=== PATIENT | male | born 1940 | race Caucasian/White ===

== ENCOUNTER 2020-12-21 20:32 | Inpatient (IN) | payer MEDICARE, BC, SELFPAY ==
[2020-12-21 20:36] VITALS: BP 184/83; PULSE 87; RESP 18; TEMP 37.3; O2SAT 95; BMI 29.9
--- NOTE | 2020-12-21 20:49 | CTR_ITS ---
PROCEDURE INFORMATION: Exam: CT Abdomen And Pelvis With Contrast Exam date and time: 12/21/2020 9:49 PM Age: 80 years old Clinical indication: Nausea and vomiting; Abdominal pain; Generalized; Patient HX: Diffuse abd pain with n/v. ; Additional info: Abdominal pain, nausea, vomiting, constipation TECHNIQUE: Imaging protocol: Computed tomography of the abdomen and pelvis with contrast. Radiation optimization: All CT scans at this facility use at least one of these dose optimization techniques: automated exposure control; mA and/or kV adjustment per patient size (includes targeted exams where dose is matched to clinical indication); or iterative reconstruction. Contrast material: OMNI 300; Contrast volume: 95 ml; Contrast route: INTRAVENOUS (IV); COMPARISON: No relevant prior studies available. RADIATION DOSE METRICS: Total DLP (mGy-cm): 1216.83 FINDINGS: Liver: There is mild hypoattenuation of the hepatic parenchyma compatible mild fatty infiltration. Gallbladder and bile ducts: A tiny hyperdensities seen in the dependent portion of the gallbladder compatible with tiny gallstones gallbladder sludge. Pancreas: Normal. No ductal dilation. Spleen: Punctate calcifications are seen within the spleen compatible with calcified granulomas. Adrenal glands: Normal. No mass. Kidneys and ureters: Normal. No hydronephrosis. Stomach and bowel: Moderate stool is present within the ascending and transverse colon. There are some dilated loops of small bowel seen within the left flank anteriorly possibly representing ileus although a partial small bowel obstruction be entirely excluded. Diverticula are seen on the sigmoid colon. There are no inflammatory changes present to suggest diverticulitis. Appendix: The appendix is abnormally dilated to 12.9 mm, containing fluid and prominent appendicular and surrounded by strandy and hazy opacities within the appendiceal mesentery, findings compatible with acute appendicitis. Intraperitoneal space: See Soft tissues finding. Vasculature: Unremarkable. No abdominal aortic aneurysm. Lymph nodes: Unremarkable. No enlarged lymph nodes. Urinary bladder: Unremarkable as visualized. Reproductive: Unremarkable as visualized. Bones/joints: Unremarkable. No acute fracture. Soft tissues: There is a right inguinal hernia that contains predominantly fat. There is a discoid the fluid attenuation mass seen along the lateral border of the hernia sac that exhibits some peripheral enhancement measuring 4.2 x 1.4 x 3.6 cm. A small peritoneal abscess cannot be entirely excluded. CT/CT abdomen pelvis w con* [id number] IMPRESSION: 1. Abnormally dilated fluid-filled appendix measuring 12.9 mm containing a prominent appendiculith and surrounded by inflammatory changes compatible with acute appendicitis. 2. Dilated small bowel loops seen in the left flank anteriorly may represent ileus although partial small bowel obstruction cannot be entirely excluded. 3. Diverticulosis of the sigmoid colon 4. Tiny hyperdensity in the dependent portion of gallbladder likely represents a tiny gallstone or sludge. 5. Mild fatty infiltration of the liver Radiation Dose CTDIVOL = (mGy): DLP = 1216.83 (mGy-cm)
[2020-12-21 21:09] LABS: Basophils % 0.2 %; Eosinophils # 0.1 10^3/uL (0.0-0.8); Eosinophils % 0.8 %; Hematocrit 40.8 % (42.0-52.0); Hemoglobin 13.6 g/dL (11.7-16.6); Lymphocytes # 2.3 10^3/uL (0.8-4.8); Lymphocytes % 14.8 %; Mean Corpuscular HGB Conc 33.3 g/dL (30.0-36.0); Mean Corpuscular Hemoglobin 29.6 pg (28.0-34.0); Mean Corpuscular Volume 88.7 fL (80-94); Mean Platelet Volume 9.9 fL (7.4-10.4); Monocytes # 1.4 10^3/uL (0.2-0.9); Monocytes % 8.8 %; Neutrophils # 11.84 10^3/uL (1.8-7.7); Nucleated Red Blood Cells % 0 %; Platelet Count 251 10^3/cmm (130-400); Red Cell Distribution Width 12.2 % (12.1-15.1); White Blood Count 15.8 10^3/uL (4.0-10.0)
[2020-12-21 21:36] LABS: Procalcitonin 0.07 ng/mL (0-0.5)
[2020-12-21 21:47] LABS: Alanine Aminotransferase 26 U/L (0-41); Alkaline Phosphatase 63 IU/L (40-130); Anion Gap 15.7 (5-19); Aspartate Amino Transferase 17 U/L (0-40); Blood Urea Nitrogen 13 mg/dL (8-23); C Reactive Protein 12.6 mg/L (0.0-4.9); Calcium 9.1 mg/dL (8.5-10.5); Carbon Dioxide 26 mmol/L (22-29); Chloride 100 mmol/L (98-107); Globulin 3.2 g/dL (1.3-4.6); Glucose 163 mg/dL (65-115); Lipase 26 U/L (13-60); Osmolality Calculated 290 mOsm/kg (285-295); Potassium 3.7 mmol/L (3.5-5.1); Sodium 138 mmol/L (136-145); Total Bilirubin 0.9 mg/dL (0.15-1.2); Total Protein 7.2 g/dL (6.6-8.7)
[2020-12-21 21:50] LABS: Add Urine Microscopic? NO
[2020-12-21] MEDS: iohexol 300 mg/mL 100 mL Btl IV (21:56)
[2020-12-21 22:08] LABS: Bilirubin Urine Neg (Negative); Blood Urine Neg (Negative); Glucose Urine UA Norm (Normal); Ketones Urine 2+ (Negative); Leukocyte Esterase Urine Negative (Negative); Nitrate Urine Negative (Negative); Protein Urine Neg (Negative); Specific Gravity, Urine 1.015 (1.005-1.030); Sulfosalicylic Acid Urine Negative (Negative); Urine Appearance Clear (CLEAR); Urine Color Yellow (Yellow); Urobilinogen Urine Norm (Negative); pH Urine 9 (5-7)
--- NOTE | 2020-12-21 23:13 | ED_ITS ---
HPI - Nausea/Vomiting/Diarrhea General: Chief complaint: Nausea/Vomiting/Diarrhea Stated complaint: stomach pain Time Seen by Provider: 12/21/20 20:40 Source: patient Mode of arrival: ambulatory Limitations: no limitations History of Present Illness: HPI Narrative: 80-year-old male who said he was awoken this morning at 2 AM with abdominal pain. He is really unable to localize the pain but he said it has gotten much worse during the day. He feels that he is constipated and thought that may be part of why he was in pain. He has taken several things to help relieve his constipation but there has been no improvement. He also has anorexia and has not had an appetite all day. He denies any fever. He has 1 episode of vomiting today. MD elicited complaint: nausea, vomiting and abdominal pain Onset (ago): hour(s) (18) Description of vomiting: food contents Associated nausea: Yes Associated abdominal pain: Yes Location of pain: Diffuse Radiation: LLQ and RLQ Pain consistency: constant Severity: severe Quality: stabbing Exacerbating factors: none Relieving factors: none Associated symtoms: Reports anorexia and nausea; Denies altered mental status, anxiety, bloating, change in vision, chest pain, cough, diaphoresis, decreased urine output, dizziness, dysuria, epistaxis, fatigue, fecal incontinence, fevers/chills, headache(s), malaise, myalgias, numbness, palpitations, rash, short of breath, syncope, tenesmus, tinnitus or weakness Review of Systems General: Reports: 10 or more systems reviewed and unremarkable except in HPI and below Const: Denies: fatigue, malaise or diaphoresis Eyes: Denies: change in vision ENMT: Denies: tinnitus or epistaxis Card: Denies: chest pain, palpitations or syncope Resp: Denies: dyspnea, productive cough or non-productive cough GI: Reports: nausea; Denies: bloating or fecal incontinence : Denies: dysuria Musc: Denies: neck pain, back pain or extremity swelling Skin/Breast: Denies: rash, pruritus or erythema Neuro: Denies: headache(s) or dizziness Psych: Denies: anxiety Endo: Denies: polyuria, polydipsia or tired all the time [facility] PFSH: Medical History (Updated 12/21/20 @ 23:26 by Gaurav Gray MD, [facility]) Coronary artery disease Diverticulosis Gastritis Giant cell arteritis History of MRSA infection Purulent wound of left upper thigh status post incision and drainage 2011 HTN (hypertension), benign Hyperlipidemia Hyperlipidemia Type 2 diabetes mellitus without complications Surgical History H/O foot surgery left heel History of colonoscopy History of coronary artery bypass graft History of esophagogastroduodenoscopy (EGD) History of hernia repair Status post surgical removal of neoplasm of skin Family History Other Diabetes Social History Smoking and tobacco status: former smoker Alcohol intake: never History of recent travel: No Physical Exam 2 Const: COMMON NORMALS: no acute distress, average body habitus, patient oriented x3, no limitations, healthy appearing, alert and well nourished EXAM LIMITATIONS: no altered mental status Neck/C-Spine: COMMON NORMALS: no meningeal signs and no JVD Resp: COMMON NORMALS: normal respiratory effort, No retractions, No use of accessory muscles, clear to auscultation bilaterally and percussion normal AUSCULTATION: clear to auscultation bilaterally PERCUSSION: percussion normal Cardio: COMMON NORMALS: no JVD, regular rate, regular rhythm, S1 normal heart sound present, S2 normal heart sound present, No gallops present (Cardio), No clicks present (Cardio), No murmurs present (Cardio), No rub (Cardio) and Peripheral pulses 2+ throughout RATE: regular rate RHYTHM: regular rhythm HEART SOUNDS: S1 normal heart sound present and S2 normal heart sound present PERIPHERAL PULSES: Peripheral pulses 2+ throughout GI: COMMON NORMALS: Normal to inspection, nondistended, normoactive bowel sounds present, Soft to palpation, No hepatosplenomegaly present, no masses and no bruits PALPATION: Yes Soft to palpation, Yes Tenderness to palpation present (GI) Details: RLQ, No Guarding due to palpation present (GI), No Rigid due to palpation and Yes No hepatosplenomegaly present Extremity: COMMON NORMALS: normal to inspection, full ROM, capillary refill normal, no calf tenderness and no pedal edema Neuro: COMMON NORMALS: patient oriented x3 SENSORIUM/ORIENTATION: Yes alert MENINGEAL SIGNS: Yes no meningeal signs Skin: COMMON NORMALS: no rashes or lesions noted, no wounds, turgor normal, no jaundice, no petechiae and no mottling GENERAL SKIN EXAM: no rashes or lesions noted and turgor normal Course Reevaluation(s): Reevaluation #1: Discussed his lab and imaging findings with the patient and his [id number], also discussed my conversation with Dr. Chavez. Advised that he will be taken to the OR in the morning. He voiced understanding and is in agreement with the plan. He said that when he took penicillin several years ago he had what he described as a skin peeling off. 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 We will therefore not give him Zosyn and will do clindamycin and Levaquin. Time: 22:45 Consultations: Consultation #1: Discussed the patient with Dr. Chavez, surgeon and he kindly accepted patient to his service. He will take the patient to the OR in the morning at 8 AM for a laparoscopic appendectomy. He would like the hospitalist to consult on this patient since he is diabetic and hypertensive. Time: 22:35 Consultation #2: Discussed the patient with Dr. Jefferson, hospitalist and he will consult on this patient. Time: 23:03 Vital Signs: Vital signs: Vital Signs Temperature 99.1 F 12/21/20 20:36 Pulse Rate 87 12/21/20 20:36 Respiratory Rate 18 12/21/20 20:36 Blood Pressure 184/83 12/21/20 20:36 Pulse Oximetry 95 12/21/20 20:36 MDM - Nausea/Vomiting/Diarrhea MDM Narrative: Medical decision making narrative: 80-year-old male with a history of hypertension and diabetes who presents with abdominal pain. Evaluation in the emergency department shows he has acute appendicitis. He has mild leukocytosis. He is admitted to the surgical service for appendectomy in the morning. He will be n.p.o. from now on and is given intravenous pain medication and antibiotics in the emergency department. Medical Records: Attestation: I reviewed the patient's medical records. Lab Data: Attestation: I reviewed the patient's lab results. Labs: Lab Results 02/19/21 02/19/21 02/19/21 Range/Units 21:02 21:02 21:40 WBC 15.8 H (4.0-10.0) 10^3/ uL RBC 4.60 (4.1-5.3) 10^6/u L Hgb 13.6 (11.7-16.6) g/dL Hct 40.8 L (42.0-52.0) % MCV 88.7 (80-94) fL MCH 29.6 (28.0-34.0) pg MCHC 33.3 (30.0-36.0) g/dL RDW 12.2 (12.1-15.1) % Plt Count 251 (130-400) 10^3/c mm MPV 9.9 (7.4-10.4) fL Neut % (Auto) 75.0 % Lymph % (Auto) 14.8 % [place] % (Auto) 8.8 % Eos % (Auto) 0.8 % Baso % (Auto) 0.2 % Neut # (Auto) 11.84 H (1.8-7.7) 10^3/u L Lymph # (Auto) 2.3 (0.8-4.8) 10^3/u L [place] # (Auto) 1.4 H (0.2-0.9) 10^3/u L Eos # (Auto) 0.1 (0.0-0.8) 10^3/u L Baso # (Auto) 0.0 (0.0-0.1) 10^3/u L Nucleated RBC % (a uto) 0 % Nucleated RBCs # 0.0 /100WBC Sodium 138 (136-145) mmol/L Potassium 3.7 (3.5-5.1) mmol/L Chloride 100 (98-107) mmol/L Carbon Dioxide 26 (22-29) mmol/L Anion Gap 15.7 (5-19) BUN 13 (8-23) mg/dL Creatinine 0.9 (0.7-1.2) mg/dL GFR Calculation Not Reportable Glucose 163 H (65-115) mg/dL Calculated Osmolal ity 290 (285-295) mOsm/k g Calcium 9.1 (8.5-10.5) mg/dL Total Bilirubin 0.9 (0.15-1.2) mg/dL AST 17 (0-40) U/L ALT 26 (0-41) U/L Alkaline Phosphata se 63 (40-130) IU/L C-Reactive Protein 12.6 H (0.0-4.9) mg/L Total Protein 7.2 (6.6-8.7) g/dL Albumin 4.0 (3.5-5.2) g/dL Globulin 3.2 (1.3-4.6) g/dL Lipase 26 (13-60) U/L Procalcitonin 0.07 (0-0.5) ng/mL Urine Color Yellow (Yellow) Urine Appearance Clear (CLEAR) Urine pH 9 H (5-7) Ur Specific Gravit y 1.015 (1.005-1.030) Urine Protein Neg (Negative) Urine Glucose (UA) Norm (Normal) Urine Ketones 2+ H (Negative) Urine Blood Neg (Negative) Urine Nitrate Negative (Negative) Urine Bilirubin Neg (Negative) Prot Sulfosalicyli c Acd Negative (Negative) Urine Urobilinogen Norm (Negative) mg/dL Ur Leukocyte Elena ase Negative (Negative) Imaging Data^: CT Abd/Pel: Attestation: I personally reviewed and interpreted this imaging study as follows: Radiologist's impression: [place] [address] CT Scan Report Signed with Stephany Patient: Troy Carpio #: [id number] : 8Acct#:[id number] Age/Sex: 80 / MADM Date: 12/21/20 [facility] Attending Dr: Ordering Provider/Ordering MD: Gaurav Gray MD, [facility] Date of Service: 12/21/20 Procedure(s): CT abdomen pelvis w con* [id number] Accession Number(s): [id number] Report Number: [id number]/CT abdomen pelvis w con* [id number] CRITICAL RESULT: THIS REPORT CONTAINS FINDINGS THAT MAY BE CRITICAL TO PATIENT CARE. The findings were verbally communicated via telephone conference with GAURAV Woflf at 10:53 PM ASSISTANT TECHNICIAN on 12/21/2020. The findings were acknowledged and understood. Radiation Dose CTDIVOL = (mGy): DLP = 1216.83 (mGy-cm) Addendum Dictated By: Castro Morelos MD Addendum Signed By: Castro Morelos MDSigned Date/Time:12/21/20 5430 Addendum Cosigned By: PROCEDURE INFORMATION: Exam: CT Abdomen And Pelvis With Contrast Exam date and time: 12/21/2020 9:49 PM Age: 80 years old Clinical indication: Nausea and vomiting; Abdominal pain; Generalized; Patient HX: Diffuse abd pain with n/v. ; Additional info: Abdominal pain, nausea, vomiting, constipation TECHNIQUE: Imaging protocol: Computed tomography of the abdomen and pelvis with contrast. Radiation optimization: All CT scans at this facility use at least one of these dose optimization techniques: automated exposure control; mA and/or kV adjustment per patient size (includes targeted exams where dose is matched to clinical indication); or iterative reconstruction. Contrast material: OMNI 300; Contrast volume: 95 ml; Contrast route: INTRAVENOUS (IV); COMPARISON: No relevant prior studies available. RADIATION DOSE METRICS: Total DLP (mGy-cm): 1216.83 FINDINGS: Liver: There is mild hypoattenuation of the hepatic parenchyma compatible mild fatty infiltration. Gallbladder and bile ducts: A tiny hyperdensities seen in the dependent portion of the gallbladder compatible with tiny gallstones gallbladder sludge. Pancreas: Normal. No ductal dilation. Spleen: Punctate calcifications are seen within the spleen compatible with calcified granulomas. Adrenal glands: Normal. No mass. Kidneys and ureters: Normal. No hydronephrosis. Stomach and bowel: Moderate stool is present within the ascending and transverse colon. There are some dilated loops of small bowel seen within the left flank anteriorly possibly representing ileus although a partial small bowel obstruction be entirely excluded. Diverticula are seen on the sigmoid colon. There are no inflammatory changes present to suggest diverticulitis. Appendix: The appendix is abnormally dilated to 12.9 mm, containing fluid and prominent appendicular and surrounded by strandy and hazy opacities within the appendiceal mesentery, findings compatible with acute appendicitis. Intraperitoneal space: See Soft tissues finding. Vasculature: Unremarkable. No abdominal aortic aneurysm. Lymph nodes: Unremarkable. No enlarged lymph nodes. Urinary bladder: Unremarkable as visualized. Reproductive: Unremarkable as visualized. Bones/joints: Unremarkable. No acute fracture. Soft tissues: There is a right inguinal hernia that contains predominantly fat. There is a discoid the fluid attenuation mass seen along the lateral border of the hernia sac that exhibits some peripheral enhancement measuring 4.2 x 1.4 x 3.6 cm. A small peritoneal abscess cannot be entirely excluded. CT/CT abdomen pelvis w con* [id number] IMPRESSION: 1. Abnormally dilated fluid-filled appendix measuring 12.9 mm containing a prominent appendiculith and surrounded by inflammatory changes compatible with acute appendicitis. 2. Dilated small bowel loops seen in the left flank anteriorly may represent ileus although partial small bowel obstruction cannot be entirely excluded. 3. Diverticulosis of the sigmoid colon 4. Tiny hyperdensity in the dependent portion of gallbladder likely represents a tiny gallstone or sludge. 5. Mild fatty infiltration of the liver Radiation Dose CTDIVOL = (mGy): DLP = 1216.83 (mGy-cm) Dictated By:Castro Morelos MD Signed By:Castro Morelos MDSigned Date/Time:12/21/202229 DD/ 27 Discharge Plan Discharge Patient Disposition: Placed in Observation Admit Provider: Wicho Chavez Clinical Impression: Acute appendicitis Qualifiers: Acute appendicitis type: with localized peritonitis Appendicitis gangrene presence: without gangrene Appendicitis perforation presence: without perforation Appendicitis abscess presence: without abscess Qualified Code(s): K35.30 - Acute appendicitis with localized peritonitis, without perforation or gangrene Coding Level of Care Code ED Vice President [employer] for g Fwd Exam Detailed
--- NOTE | 2020-12-21 23:14 | P.CONIM_ITS ---
Providers/Reason For Consult Consulting Physican/Specialty*: Hospitalist Reason for Consult*: Underlying diabetes and hypertension, history of CABG Primary Care Provider: Lamin Addison MD History of Present Illness History of Present Illness Troy Carpio is a 80 year old male who has history of type 2 diabetes hypertension, coronary disease status post CABG presented today with chief complaint of abdominal discomfort. Patient is stating that his abdominal pain woke him up around 2 AM, he was experiencing sharp right lower quadrant pain, he tried tried to ease himself out with walking in his house but his symptoms were not getting better, he tried to make coffee and then only took a couple of steps before he vomited. In total he only vomited once today but his symptoms gradually got worse by 2-4 PM, in total he took 2 to 3 antacids. He did not stress any fever, chest pain, shortness of breath, syncope or recurrent vomi ting. Diagnostics in the ER revealed acute appendicitis without abscess or perforation Dr. Chavez has been consulted and requested medical consult because of his underlying diabetes, hypertension, patient is denying history of giant cell arteritis which is mentioned in his past medical history. He has been given clindamycin and Levaquin endorsing allergy to penicillin, CT abdomen consistent with acute appendicitis, leukocytosis without sepsis Review of Systems Const: Reports: chills, body aches, change in appetite and fatigue; Denies: fever(s) Eyes: Denies: change in vision ENMT: Denies: throat pain Card: Denies: chest pain Resp: Denies: dyspnea GI: Reports: abdominal pain, nausea, vomiting, early satiety and bloating : Denies: flank pain Musc: Denies: neck pain Skin/Breast: Reports: lesions Neuro: Denies: headache(s) Psych: Denies: anxiety Endo: Denies: polyuria Reyes/Lymph: Denies: easy bruising All/Imm: Denies: urticaria Meds/Allergies Home Medications and Allergies Home Medications Medication Instructions Recorded Confirmed Last Taken Type ipratropium bromide 0.03 % nasal 2 spray INTRANASAL BID #30 ml 04/19/20 11/29/20 Unknown Rx spray ketoconazole 2 % shampoo 1 applic TOPICAL .2 x weekly #120 11/19/20 11/29/20 Unknown Rx ml metformin 850 mg tablet 850 mg PO DAILY 11/19/20 11/29/20 Unknown History oxiconazole 1 % topical cream 1 applic TOPICAL BID #30 g 11/19/20 11/29/20 Unknown Rx timolol 0.25 % eye drops 1 drp OPHTHALMIC (EYE) DAILY 11/19/20 11/29/20 Unknown History ketoconazole 2 % topical cream 1 applic TOPICAL DAILY #30 g 11/20/20 11/29/20 Unknown Rx amlodipine 5 mg tablet 5 mg PO DAILY #90 tab 11/29/20 11/29/20 Unknown Rx celecoxib 200 mg capsule 200 mg PO DAILY #90 cap 11/29/20 11/29/20 Unknown Rx clopidogrel 75 mg tablet 75 mg PO DAILY #90 tab 11/29/20 11/29/20 Unknown Rx glipizide 2.5 mg tablet, extended 2.5 mg PO DAILY #90 tab 11/29/20 11/29/20 Unknown Rx release 24 hr lansoprazole 30 mg capsule,delayed 30 mg PO DAILY #90 cap 11/29/20 11/29/20 Unknown Rx release losartan 50 mg tablet 50 mg PO DAILY #90 tab 11/29/20 11/29/20 Unknown Rx magnesium 250 mg tablet 500 mg PO DAILY #90 tab 11/29/20 11/29/20 Unknown Rx metoprolol tartrate 25 mg tablet 25 mg PO DAILY #90 tab 11/29/20 11/29/20 Unknown Rx Allergies Allergy/AdvReac Type Severity Reaction Status Date / Time Penicillins Allergy ALGY-Bliste Verified 11/29/20 15:27 r simvastatin [From Zocor] Allergy ALGY-Rash Verified 11/29/20 15:27 PFSH Acute PFSH: Medical History Coronary artery disease Diverticulosis Gastritis Giant cell arteritis History of MRSA infection Purulent wound of left upper thigh status post incision and drainage 2011 HTN (hypertension), benign Hyperlipidemia Hyperlipidemia Type 2 diabetes mellitus without complications Surgical History H/O foot surgery left heel History of colonoscopy History of coronary artery bypass graft History of esophagogastroduodenoscopy (EGD) History of hernia repair Status post surgical removal of neoplasm of skin Family History Other Diabetes Social History Smoking and tobacco status: former smoker Alcohol intake: never History of recent travel: No Vitals/I&O/Wt Last Vital Signs Temp 99.1 F 12/21/20 20:36 Pulse 87 12/21/20 20:36 Resp 18 12/21/20 20:36 BP 184/83 12/21/20 20:36 Pulse Ox 95 12/21/20 20:36 Weight last 48 hrs Weight 84.368 kg Physical Exam Narrative: EXAM NARRATIVE: Elderly male who is laying comfortably in his bed with normal hemodynamics, saturating well on room air S1, S2 no murmur appreciated No acute respiratory distress Appropriate mood and affect No acute distress Abdomen distended central obesity, no signs of peritonitis, no rigidity, focal point of tenderness right lower quadrant area No active vomiting No neurological deficit awake alert oriented x3 GCS 15 Multiple macular rash all over his skin No cellulitis gangrene or ulcer of lower extremity A&P Assessment and plan (1) Acute appendicitis: Acute appendicitis without sepsis perforation or abscess Considering penicillin allergy would use clindamycin and Levaquin for now Dr. Chavez consulted N.p.o. D5 half-normal saline maintenance fluid rate Dilaudid for analgesia Status: Acute Additional A&P Information Diabetes: I will keep him on D5 half-normal saline maintenance rate along low- dose sliding scale History hypertension: Currently he is normotensive would use labetalol if systolic blood pressure is above 180 mmHg. Avoid [place] or ARB in perioperative period. DVT prophylaxis: SCDs N.p.o. Full code Consult Attestations Medical Necessity Statement: As per general surgery Time Spent in Patient Care: (>than 50% of time spent in counselling and/or direct pt care on unit) . 30mins Coding Level of Care Code Acute Door Frame Builder for Emely Rose Diagnoses Acute appendicitis K35.80
[2020-12-21] MEDS: sodium chloride 0.9% 1,000 ML 100 ML IV (23:39)
[2020-12-21] MEDS: ondansetron 2 mg/ML SDV 2 mL 4 MG IVP (23:39)
[2020-12-21] MEDS: clindamycin 900 MG/50 ML PREMIX 100 MG IV (23:44)
[2020-12-21 23:46] VITALS: RESP 16; O2SAT 94
[2020-12-21] MEDS: morphine 4 mg/mL SDV 1 mL IVP (23:46)
[2020-12-21 23:56] VITALS: BP 125/74; PULSE 85; RESP 16; O2SAT 90
[2020-12-22] VITALS (22 sets, daily range): BP systolic 96–165; BP diastolic 58–99; PULSE 73–88; RESP 16–21; TEMP 36.4–37.6; O2SAT 90–96
[2020-12-22] MEDS: dextrose 5%-sod chloride 0.45% 1,000 ML 30 ML IV (00:40)
[2020-12-22] MEDS: levofloxacin-dextrose 5 % 750 MG/150 ML PREMIX 100 MG IV (00:41)
[2020-12-22] MEDS: ketorolac 30 mg/mL INJ 15 MG IVP (00:41)
--- NOTE | 2020-12-22 06:50 | PM.HP ---
Providers/Chief Complaint Admitting Physician: Wicho Chavez MD Primary Care Provider: Lamin Addison MD Chief Complaint: stomach pain History of Present Illness HPI: Mr Troy Carpio is a pleasant 80 year old male with history of obesity, hypertension and diabetes mellitus type 2 presents with history of worsening abdominal pain at the right side of the abdomen that started around 2:00 in the morning , patient started the periumbilical lesion and started shifting towards the right lower quadrant associated with nausea and vomiting x1. Patient did experience chills but no recorded temperature or fevers and he has been having chronic constipation and last bowel movement he had about 2 days ago. Patient reports that the pain mostly in the right lower quadrant being dull not being referred nothing seems to make it better except laying down. Moving around makes it worse. I did asked the patient about last colonoscopy and he reports to me was 2 years ago and it was within normal limits per his description. He did have previous surgeries on his knee and 3 hernia repairs of a right groin hernia and he did not have any bleeding or anesthesia problems. Patient reports that he had a quadruple coronary artery bypass before and he has been on Plavix and last time he had received the Plavix was Thursday morning. Patient was further evaluated in the emergency department and was found to have a leukocytosis of 15,000+ and a CT scan of the abdomen and pelvis that showed: IMPRESSION: 1. Abnormally dilated fluid-filled appendix measuring 12.9 mm containing a prominent appendiculith and surrounded by inflammatory changes compatible with acute appendicitis. 2. Dilated small bowel loops seen in the left flank anteriorly may represent ileus although partial small bowel obstruction cannot be entirely excluded. 3. Diverticulosis of the sigmoid colon 4. Tiny hyperdensity in the dependent portion of gallbladder likely represents a tiny gallstone or sludge. 5. Mild fatty infiltration of the liver Review of Systems General: Reports: 10 or more systems reviewed and unremarkable except in HPI and below Medications/Allergies Home Medications Medication Instructions Recorded Confirmed Last Taken Type ipratropium bromide 0.03 % nasal 2 spray INTRANASAL BID #30 ml 04/19/20 11/29/20 Unknown Rx spray ketoconazole 2 % shampoo 1 applic TOPICAL .2 x weekly #120 11/19/20 11/29/20 Unknown Rx ml metformin 850 mg tablet 850 mg PO DAILY 11/19/20 11/29/20 Unknown History oxiconazole 1 % topical cream 1 applic TOPICAL BID #30 g 11/19/20 11/29/20 Unknown Rx timolol 0.25 % eye drops 1 drp OPHTHALMIC (EYE) DAILY 11/19/20 11/29/20 Unknown History ketoconazole 2 % topical cream 1 applic TOPICAL DAILY #30 g 11/20/20 11/29/20 Unknown Rx amlodipine 5 mg tablet 5 mg PO DAILY #90 tab 11/29/20 11/29/20 Unknown Rx celecoxib 200 mg capsule 200 mg PO DAILY #90 cap 11/29/20 11/29/20 Unknown Rx clopidogrel 75 mg tablet 75 mg PO DAILY #90 tab 11/29/20 11/29/20 Unknown Rx glipizide 2.5 mg tablet, extended 2.5 mg PO DAILY #90 tab 11/29/20 11/29/20 Unknown Rx release 24 hr lansoprazole 30 mg capsule,delayed 30 mg PO DAILY #90 cap 11/29/20 11/29/20 Unknown Rx release losartan 50 mg tablet 50 mg PO DAILY #90 tab 11/29/20 11/29/20 Unknown Rx magnesium 250 mg tablet 500 mg PO DAILY #90 tab 11/29/20 11/29/20 Unknown Rx metoprolol tartrate 25 mg tablet 25 mg PO DAILY #90 tab 11/29/20 11/29/20 Unknown Rx Allergies Allergy/AdvReac Type Severity Reaction Status Date / Time Penicillins Allergy ALGY-Bliste Verified 12/22/20 06:56 r simvastatin [From Zocor] Allergy ALGY-Rash Verified 12/22/20 06:56 PFSH Acute PFSH: Medical History Coronary artery disease Diverticulosis Gastritis Giant cell arteritis History of MRSA infection Purulent wound of left upper thigh status post incision and drainage 2011 HTN (hypertension), benign Hyperlipidemia Hyperlipidemia Type 2 diabetes mellitus without complications Surgical History H/O foot surgery left heel History of colonoscopy History of coronary artery bypass graft History of esophagogastroduodenoscopy (EGD) History of hernia repair Status post surgical removal of neoplasm of skin Family History Other Diabetes Social History Smoking and tobacco status: former smoker Alcohol intake: never History of recent travel: No Vitals/I&O/Wt Last Vital Signs Temp 99.1 F 12/22/20 04:00 Pulse 79 12/22/20 04:00 Resp 18 12/22/20 04:00 BP 96/58 12/22/20 04:00 Pulse Ox 94 12/22/20 04:00 12/21/20 12/21/20 12/22/20 14:59 22:59 06:59 Intake Total 200 / 200 Output Total 300 / 300 Balance -100 / -100 Weight last 48 hrs Weight 186 lb Physical Exam Narrative: EXAM NARRATIVE: Patient is conscious alert oriented X3 BMI 30.0 Head and neck examination PERRLA no masses no cervical lymphadenopathy no jaundice Cardiac examination audible S1-S2 no murmurs no gallops no arrhythmias Chest is clear bilateral,abscence of Rhonchi or wheezes,no surgical emphysema Abdomen RLQ tenderess, localized guarding and rigidity McBurney's point. nondistended soft no organomegaly guarding or rigidity/no signs of peritonitis. Bilateral groin examination shows no clinically detected hernias Obese Data : 12/22/20 06:02 12/22/20 06:02 A&P Assessment and plan (1) Acute appendicitis: After thorough history physical examination and reviewing the chart and images of the CT scan with my personal interpretion, I did appreciate fullness and changes at the right groin yet correlating with the clinical examination there is no discrete clinically detected hernia recurrence. Likely amalgamation of fatty tissues and previous mesh placement and patient has been giving history of fullness in this area as he did have previous 3 inguinal hernia surgeries before. I counseled the patient for laparoscopic appendectomy possible open. Indications, risks, benefits and alternatives were all discussed with the patient and did agree to proceed. Also patient understands that he is a higher risk of bleeding tendency as he has been on chronic Plavix therapy, giving the urgency of his pathology surgical intervention would be warranted.Patient understands and he would like to proceed accordingly. Rationale was carefully and clearly discussed with the patient.Appropriate informed consent have been reviewed and signed I appreciate Dr. Jaramillo's input with regard to patient's medical comorbidities We will give the patient a bolus of 500 mL of saline prior to surgery Patient on parenteral antimicrobial therapy Status: Acute Qualifiers: Acute appendicitis type: with localized peritonitis Appendicitis abscess presence: without abscess Appendicitis gangrene presence: without gangrene Appendicitis perforation presence: without perforation Qualified Code(s): K35.30 - Acute appendicitis with localized peritonitis, without perforation or gangrene Attestations Medical Necessity Statement*: Observation status for medical and surgical care Time Spent in Patient Care: 16 - 35 minutes (>than 50% of time spent in counselling and/or direct pt care on unit). Coding Level of Care Code Acute Automatic Mounter for [facility] Fwd Diagnoses Acute appendicitis K35.30 Acute appendicitis type: with localized peritonitis Appendicitis abscess presence: without abscess Appendicitis gangrene presence: without gangrene Appendicitis perforation presence: without perforation
[2020-12-22] MEDS: sodium chloride 0.9% 500 ML 999 ML IV (06:56)
[2020-12-22 07:00] LABS: Basophils % 0.1 %; Eosinophils # 0.1 10^3/uL (0.0-0.8); Eosinophils % 0.5 %; Hematocrit 39.7 % (42.0-52.0); Hemoglobin 12.8 g/dL (11.7-16.6); Lymphocytes # 1.7 10^3/uL (0.8-4.8); Lymphocytes % 11.1 %; Mean Corpuscular HGB Conc 32.2 g/dL (30.0-36.0); Mean Corpuscular Hemoglobin 29.6 pg (28.0-34.0); Mean Corpuscular Volume 91.9 fL (80-94); Mean Platelet Volume 10.5 fL (7.4-10.4); Monocytes # 1.8 10^3/uL (0.2-0.9); Monocytes % 11.6 %; Neutrophils # 11.81 10^3/uL (1.8-7.7); Neutrophils % 76.2 %; Nucleated Red Blood Cells % 0 %; Platelet Count 217 10^3/cmm (130-400); Red Blood Count 4.32 10^6/uL (4.1-5.3); Red Cell Distribution Width 12.5 % (12.1-15.1); White Blood Count 15.5 10^3/uL (4.0-10.0)
[2020-12-22 07:18] LABS: Blood Urea Nitrogen 13 mg/dL (8-23); Calcium 8.5 mg/dL (8.5-10.5); Carbon Dioxide 28 mmol/L (22-29); Chloride 101 mmol/L (98-107); Creatinine Clr Calc Pharmacy 52.7472; Glucose 171 mg/dL (65-115); Osmolality Calculated 290 mOsm/kg (285-295); Sodium 138 mmol/L (136-145)
--- NOTE | 2020-12-22 08:30 | P.ANESASSM_ITS ---
Pre-Anesthetic Assessment Pre-Anesthetic Assessment: Height/Weight: Height 1.68 m Weight 84.368 kg Temp Pulse Resp BP Pulse Ox 99.7 F H 81 17 134/65 90 12/22/20 08:05 12/22/20 08:14 12/22/20 08:14 12/22/20 08:14 12/22/20 08:14 Preop Diagnosis: Appendicitis Proposed Procedure: Operation Date: 12/22/20 09:15 Proposed Procedures p Laparoscopic Appendectomy(Not Applicable) - Wicho Chavez MD Familial anesthetic complications: NOne Was Beta Eve taken within 24 hours: Yes Last intake: Intake Last Liquid Date 12/21/20 Last Liquid Time 12:00 Last Solid Date 12/21/20 Last Solid Time 12:00 Social: Social History: No alcohol and No tobacco Exam: Pre-Anes Outpt Exam: alert, oriented x 3, clear to auscultation wero aterally and regular rate & rhythm Airway: Cervical ROM: WNL MP: 3 Dentition: Other (implants) CV/HEM: CV/HEM: CAD (s/p cabg) and HTN Metabolic: Metabolic: DM Anesthetic Plan: ASA status: 3 Anesthesia: General Risk of > 500 ml blood loss (7ml/kg in children): No Meds/Allergies Current Medications: Current Medications Generic Name Dose Route Start Last Admin Trade Name Freq PRN Reason Stop Dose Admin Dextrose/Sodium Ch loride 1,000 mls @ 30 ml s/hr 12/22/20 00:09 12/22/20 00:40 Dextrose 5%-Sod Chloride 0.45% IV 30 mls/hr .Q24H RAZA Administration Levofloxacin/Dextr ose 750 mg in 150 mls @ 100 mls/hr 12/22/20 00:09 12/22/20 02:55 Levaquin-D5w IV Infused Q24H RAZA Infusion Protocol Sodium Chloride 500 mls @ 999 mls /hr 12/22/20 06:45 12/22/20 08:17 Sodium Chloride 0.9% IV Not Given .Q31M RAZA Insulin Aspart 0 unit 12/22/20 08:00 12/22/20 08:16 Insulin Aspart 1 00 Unit/1 Ml SUBCUT Not Given WM&BEDTIME RAZA Protocol PFSH Anesthesia PFSH: Medical History Coronary artery disease Diverticulosis Gastritis Giant cell arteritis History of MRSA infection Purulent wound of left upper thigh status post incision and drainage 2011 HTN (hypertension), benign Hyperlipidemia Hyperlipidemia Type 2 diabetes mellitus without complications Surgical History H/O foot surgery left heel History of colonoscopy History of coronary artery bypass graft History of esophagogastroduodenoscopy (EGD) History of hernia repair Status post surgical removal of neoplasm of skin Family History Other Diabetes Social History Smoking and tobacco status: former smoker Alcohol intake: never History of recent travel: No Data Anesthesia CBC & Chem 7: 12/22/20 06:02 12/22/20 06:02 Other Labs: Laboratory Results - last 48 hr 12/21/20 12/21/20 12/21/20 21:02 21:02 21:40 WBC 15.8 H RBC 4.60 Hgb 13.6 Hct 40.8 L MCV 88.7 MCH 29.6 MCHC 33.3 RDW 12.2 Plt Count 251 MPV 9.9 Neut % (Auto) 75.0 Lymph % (Auto) 14.8 [place] % (Auto) 8.8 Eos % (Auto) 0.8 Baso % (Auto) 0.2 Neut # (Auto) 11.84 H Lymph # (Auto) 2.3 [place] # (Auto) 1.4 H Eos # (Auto) 0.1 Baso # (Auto) 0.0 Nucleated RBC % (auto) 0 Nucleated RBCs # 0.0 Sodium 138 Potassium 3.7 Chloride 100 Carbon Dioxide 26 Anion Gap 15.7 BUN 13 Creatinine 0.9 GFR Calculation Not Reportable Glucose 163 H Calculated Osmolality 290 Calcium 9.1 Total Bilirubin 0.9 AST 17 ALT 26 Alkaline Phosphatase 63 C-Reactive Protein 12.6 H Total Protein 7.2 Albumin 4.0 Globulin 3.2 Lipase 26 Procalcitonin 0.07 Urine Color Yellow Urine Appearance Clear Urine pH 9 H Ur Specific [place] 1.015 Urine Protein Neg Urine Glucose (UA) Norm Urine Ketones 2+ H Urine Blood Neg Urine Nitrate Negative Urine Bilirubin Neg Prot Sulfosalicylic Acd Negative Urine Urobilinogen Norm Ur Leukocyte Esterase Negative 02/20/21 02/20/21 06:02 06:02 WBC 15.5 H RBC 4.32 Hgb 12.8 Hct 39.7 L MCV 91.9 MCH 29.6 MCHC 32.2 RDW 12.5 Plt Count 217 MPV 10.5 H Neut % (Auto) 76.2 Lymph % (Auto) 11.1 [place] % (Auto) 11.6 Eos % (Auto) 0.5 Baso % (Auto) 0.1 Neut # (Auto) 11.81 H Lymph # (Auto) 1.7 [place] # (Auto) 1.8 H Eos # (Auto) 0.1 Baso # (Auto) 0.0 Nucleated RBC % (auto) 0 Nucleated RBCs # 0.0 Sodium 138 Potassium 4.0 Chloride 101 Carbon Dioxide 28 Anion Gap 13.0 BUN 13 Creatinine 1.1 GFR Calculation Not Reportable Glucose 171 H Calculated Osmolality 290 Calcium 8.5 Total Bilirubin AST ALT Alkaline Phosphatase C-Reactive Protein Total Protein Albumin Globulin Lipase Procalcitonin Urine Color Urine Appearance Urine pH Ur Specific [place] Urine Protein Urine Glucose (UA) Urine Ketones Urine Blood Urine Nitrate Urine Bilirubin Prot Sulfosalicylic Acd Urine Urobilinogen Ur Leukocyte Esterase Cardiac Studies: No Data to Display
[2020-12-22] MEDS: sodium chloride 0.9% 1,000 ML 30 ML IV (08:37)
[2020-12-22] MEDS: clindamycin 900 MG/50 ML PREMIX 100 MG IV ×3 (09:48→23:19)
[2020-12-22] MEDS: lidocaine 2% INJ 20 mL INJECTION (10:10)
--- NOTE | 2020-12-22 11:43 | P.OP_ITS ---
Operative Report Date of procedure: December 22, 2020 Pre-op Diagnosis: Acute appendicitis Post-op Diagnosis: Acute retrocecal appendicitis with necrosis of the wall and with extensive scarring to the lateral pelvic wall and fecalith was appreciated Procedure Done: Laparoscopic appendectomy Specimens removed/disposition: Appendix Surgeon: Wicho Chavez Operations Officer Afloat: Surgical technaseem Soliman Circulating nurse Shalonda Martins Anesthesia: General (infrastructure director Roxana) Estimated blood loss (mL): 15 Condition: stable Disposition: observation Brief History: This is a pleasant 81 years old gentleman presented to the emergency department with worsening right lower quadrant abdominal pain, for the past couple of days or so. Further work-up showed the patient have leukocytosis and CT scan showed acute appendicitis with fecalith formation. Patient reports that he had a colonoscopy about 2 years ago and was reported as normal per his description. After thorough history physical examination and reviewing the chart and images with my personal interpretion, I counseled the patient for laparoscopic appendectomy possible open. Indications, risks, benefits and alternatives were all discussed with the patient and did agree to proceed. Rationale was carefully and clearly discussed with the patient.Appropriate informed consent have been reviewed and signed Procedure: Patient after being identified in the holding area and asked to void urine, and informed consent per chart ,patient was then taken back to the OR placed in supine position got intubated by anesthesia left arm was tucked tucked ,Timeout was done verifying the patient's name/date of /planned procedure and destination after the procedure, all were in agreement., preoperative antibiotics administered per protocol. prep and drape of the abdomen was done under the usual sterile technique. Started by longitudinal skin incision supraumbilical using a Wesley trocar technique safe entry to the abdominal cavity was achieved verified by using 10 mm zero degree laparoscopy, switched to a 30? scope under direct visualization a suprapubic 5 mm trocar was inserted followed by another 5 mm trocar inserted in the left lower quadrant, I was able to position the patient in an T Whitaker and left side down. Because of the patient's body habitus and a deeply seated location of the inflamed appendix .I had to add an additional 5 mm trocar towards the right side of the abdomen to help in retracting the surrounding viscera due to the fact that the appendix was deeply seated towards the terminal ileum and was scarred down to the lateral pelvic wall. After appropriate exposure dissection of the appendix carried on from the tip t owards the base, using LigaSure device for control of the scarred down mesentery of the appendix, noticed to have inflammation of the nearby small bowel likely reactive.There were some adhesions towards the lateral pelvic wall that was taken down by sharp and blunt dissection,attention was deviated to the healthy base of the appendix were I had to switch the camera to 5 mm 30? scope got introduced through the left lower quadrant and through the Wesley trocar under direct visualization a GI stapler 45 mm blue load was applied at the healthy part of the base of the appendix. A fecalith was appreciated and the appendix was then retrieved in an Endo Catch bag, final survey was done of the abdomen and pelvis, copious and thorough irrigation with 2 L of warm saline, and suction was obtained. A 5 mm clips were applied onto the mesoappendix for minimal oozing. Also a figure of eight 2-0 silk was applied on one of the nearby appendices epiploicae for appropriate hemostasis Final look laparoscopy was done showing no other abnormalities or injuries or bleeding yet diverticulosis of the sigmoid colon was noticed without complication, all trocars were taken out under direct visualization after the supraumblical trocar site was closed by #1 PDS sutures under direct vision using fascial closure device, irrigation of all incisions was done by normal saline,followed by 3-0 Vicryl for deep subdermal closure of all trocar site incisions and skin ba were applied,infiltration of local lidocaine 2% was done to all incision sites.Dry dressing was applied. Count was completed at the end of the procedure for [place],sponges and instruments Patient tolerated the procedure well and was transferred to the recovery area after extubation. I was present for the whole entire procedure
[2020-12-22] MEDS: acetaminophen 325 mg Tablet 650 MG PO (13:30)
--- NOTE | 2020-12-22 14:16 | PM.PN ---
Subjective Subjective: Interval history: Postoperatively he is somewhat somnolent, recovering from anesthesia. He is accompanied by his [id number] in the room. He is groggy, but wakes up to voice, is tender in the lower abdomen, especially right lower quadrant. Otherwise no other complaints. Denies trouble breathing. No chest pain. Vitals/I&O/Wt Last Vital Signs Temp 98.5 F 12/22/20 12:15 Pulse 77 12/22/20 12:15 Resp 18 12/22/20 12:15 BP 141/90 12/22/20 12:15 Pulse Ox 94 12/22/20 12:15 12/21/20 12/22/20 12/22/20 22:59 06:59 14:59 Intake Total 200 / 200 3028.5 / 3028.5 Output Total 300 / 300 120 / 120 Balance -100 / -100 2908.5 / 2908.5 Weight last 48 hrs Weight 84.368 kg Physical Exam Const: COMMON NORMALS: no acute distress GENERAL APPEARANCE: lethargic NUTRITIONAL APPEARANCE: obese ORIENTATION/CONSCIOUSNESS: Yes lethargic HENMT: COMMON NORMALS: oropharynx normal Neck/C-Spine: COMMON NORMALS: no JVD Resp: COMMON NORMALS: normal respiratory effort and clear to auscultation bilaterally AUSCULTATION: clear to auscultation bilaterally Cardio: COMMON NORMALS: no JVD, regular rhythm, S1 normal heart sound present, S2 normal heart sound present and No murmurs present (Cardio) RHYTHM: regular rhythm HEART SOUNDS: S1 normal heart sound present and S2 normal heart sound present GI: COMMON NORMALS: Soft to palpation and non-tender INSPECTION: Yes abdominal distension PALPATION: Yes Soft to palpation OTHER: For trocar wounds on abdomen, no discharge or active bleed Extremity: COMMON NORMALS: no joint enlargement and no pedal edema Neuro: COMMON NORMALS: moves all extremities SENSORIUM/ORIENTATION: Yes lethargic Skin: COMMON NORMALS: no rashes or lesions noted GENERAL SKIN EXAM: no rashes or lesions noted Data : 12/22/20 06:02 12/22/20 06:02 A&P Assessment and plan (1) Acute appendicitis: Status post appendectomy for acute retrocecal appendicitis with extensive scarring, fecalith. Recovering from anesthesia, so far apart from tenderness in the right lower quadrant doing well. Given the extent of local changes surgery like to monitor him additionally overnight. Status: Acute Qualifiers: Acute appendicitis type: with localized peritonitis Appendicitis abscess presence: without abscess Appendicitis gangrene presence: without gangrene Appendicitis perforation presence: without perforation Qualified Code(s): K35.30 - Acute appendicitis with localized peritonitis, without perforation or gangrene Additional A&P Information Diabetes: He is now resumed on clear liquid consistent carbohydrate diet by surgery. Continue low-dose SSI insulin. History hypertension: Monitor blood pressures as he is recovering from anesthesia. Reconcile home medications. Attestations Medical Necessity Statement*: Continue hospitalization for additional monitoring for living appendectomy. Coding Level of Care Code Acute Customer Service Representative Teller for [facility] Fwd Exam Comprehensive Diagnoses Acute appendicitis K35.30 Acute appendicitis type: with localized peritonitis Appendicitis abscess presence: without abscess Appendicitis gangrene presence: without gangrene Appendicitis perforation presence: without perforation
[2020-12-22] MEDS: HYDROcodone-acetaminophen 5-325 mg Tablet 1 TAB PO (14:35)
[2020-12-23] VITALS (9 sets, daily range): BP systolic 120–172; BP diastolic 64–75; PULSE 77–99; RESP 17–18; TEMP 36.6–37.1; O2SAT 90–93
[2020-12-23] MEDS: levofloxacin-dextrose 5 % 750 MG/150 ML PREMIX 100 MG IV (02:07)
[2020-12-23 04:55] LABS: Basophils % 0.1 %; Hematocrit 35.7 % (42.0-52.0); Hemoglobin 11.3 g/dL (11.7-16.6); Lymphocytes # 1.6 10^3/uL (0.8-4.8); Lymphocytes % 10.3 %; Mean Corpuscular HGB Conc 31.7 g/dL (30.0-36.0); Mean Corpuscular Hemoglobin 29.8 pg (28.0-34.0); Mean Corpuscular Volume 94.2 fL (80-94); Mean Platelet Volume 10.5 fL (7.4-10.4); Monocytes # 1.3 10^3/uL (0.2-0.9); Monocytes % 8.6 %; Neutrophils # 12.17 10^3/uL (1.8-7.7); Neutrophils % 80.5 %; Nucleated Red Blood Cells % 0 %; Platelet Count 198 10^3/cmm (130-400); Red Blood Count 3.79 10^6/uL (4.1-5.3); Red Cell Distribution Width 12.8 % (12.1-15.1); White Blood Count 15.1 10^3/uL (4.0-10.0)
[2020-12-23 05:17] LABS: Anion Gap 13.9 (5-19); Blood Urea Nitrogen 12 mg/dL (8-23); Calcium 7.8 mg/dL (8.5-10.5); Carbon Dioxide 23 mmol/L (22-29); Chloride 103 mmol/L (98-107); Creatinine Clr Calc Pharmacy 52.7472; Glucose 188 mg/dL (65-115); Osmolality Calculated 287 mOsm/kg (285-295); Potassium 3.9 mmol/L (3.5-5.1); Sodium 136 mmol/L (136-145)
--- NOTE | 2020-12-23 06:25 | P.PN_ITS ---
Subjective Subjective: Interval history: Per maintenance technician 2nd shift nursing staff patient did well overnight and had good urine output. Has been working on the incentive spirometer and no acute events overnight and started passing gas, tolerating p.o. intake. WBC count shows 15.1 little trending down from yesterdayWhich was 15.5 and the day before 15.8 at admission, Remaining of the labs are unremarkableExcept for slight drift in H&HDropped from 12.8 to 11.3 Per patient's reporting he did not pass gas yet. Feels little bit sore but he is aware that there are pain medications ordered for him, patient prefers to take minimum pain medications. Patient reports that he feels bloated but did not vomit. Vitals/I&O/Wt Last Vital Signs Temp 98.4 F 12/23/20 04:00 Pulse 83 12/23/20 05:55 Resp 17 12/23/20 04:00 BP 149/64 12/23/20 04:00 Pulse Ox 90 12/23/20 04:00 12/22/20 12/22/20 12/23/20 14:59 22:59 06:59 Intake Total 3148.5 / 3148.5 590 / 3738.5 200 / 3938.5 Output Total 120 / 120 225 / 345 300 / 645 Balance 3028.5 / 3028.5 365 / 3393.5 -100 / 3293.5 Weight last 48 hrs Weight 186 lb Physical Exam Narrative: EXAM NARRATIVE: Patient is conscious alert oriented X3 BMI 30 Head and neck examination PERRLA no masses no cervical lymphadenopathy no meredith dice Cardiac examination audible S1-S2 no murmurs no gallops no arrhythmias Chest is clear bilateral,abscence of Rhonchi or wheezes,no surgical emphysema Abdomen nontender moderately distended, positive bowel sounds soft no organomegaly guarding or rigidity/no signs of peritonitis Dressing dry and in place Data : 12/23/20 04:24 12/23/20 04:24 A&P Assessment and plan (1) Status post appendectomy: Patient is status post laparoscopic appendectomy 12/22/2020 1-encourage ambulation 2-3 times down the [place] and each time at least 200 to 300 feet with assistance. 2-incentive spirometer every hour 3-we'll start the patient on heparin subcu 5000 units every 12 hours 4-awaiting bowel functions once patient starts passing gas will advance slowly to full liquid diet 5-DC clindamycin and continue Levaquin 6-CBC and BMP ordered for tomorrow 7-we'll continue coordinating with hospitalist service 8-encourage patient to go slowly on p.o. intake Assurance and education All questions have been answered and all concerns have been addressed to patient's satisfaction. Status: Acute Attestations Medical Necessity Statement*: Continue observation status for medical and martinez rgical care, awaiting bowel function and trending down of WBC count with the benefit of parenteral antimicrobial therapy. Coding Level of Care Code Acute Rabbler for [facility] Fwd Diagnoses Status post appendectomy Z90.49
[2020-12-23] MEDS: dextrose 5%-sod chloride 0.45% 1,000 ML 30 ML IV (06:36)
[2020-12-23 06:40] LABS: Glucose Point of Care 179 mg/dL (70-110)
[2020-12-23] MEDS: sodium chloride 0.9% 1,000 ML 75 ML IV ×2 (08:19→21:43)
[2020-12-23] MEDS: heparin 5,000 unit/mL INJ 1 mL 5000 UNIT SUBCUT ×2 (08:21→18:16)
[2020-12-23] MEDS: HYDROcodone-acetaminophen 5-325 mg Tablet 1 TAB PO ×2 (09:39→17:53)
--- NOTE | 2020-12-23 10:25 | PC.CHAP ---
Pastoral Care Encounter/Spiritual Assessment Type of Contact [x] Declined software developer intern visit [] Patient/Family/Request visit [] Outpatient visit [] Follow-up visit [] Physician referral [] Code/Alert [] Routine visit [] Staff referral [] Actively dying [] Patient sleeping [] Family support [] [] Out of room [] Palliative care [] [] Receiving care in room [] Pre-surgical visit [] Trauma [] Long length of stay [] ICU visit [] Other: Relational/Emotional Strength [] Patient feels connected with others/family/visitors/staff [] Distress [] Loneliness/isolation [] Abandonment Spirituality of Patient [] Person of [place] [] Attends Sabianism of their [place] [] Believes in Prayer [] Reads Bible or Spiritism materials [] There are Spiritual issues to be addressed Enterprise Software Engineer Interventions [] Prayer [] Active listening [] Non-anxious presence [] Spiritual/emotional support [] Crisis/trauma care [] Spiritual counseling [] Bereavement support [] Provided bereavement packet [] Provided Bible/devotional materials [] Provided toy/stuffed animal, coloring book to patient or family member [] Provided Communion [] Anointing/[place] [] Salvation [] Completed spiritual assessment [] Other: Impact on Illness or Injury [] Angry [] Fearful [] Anxious [] Often cries [] Exhaustion [] Unable to work [] Unable to attend spiritism [] Unable to walk/stand [] Unable to read [] Unable to drive [] Unable to eat/drink [] Unable to sleep [] Unable to be with family [] Patient intubated [] Other: Summary Time spent with patient
[2020-12-23 11:03] LABS: Glucose Point of Care 174 mg/dL (70-110)
[2020-12-23] MEDS: HYDROmorphone 1 mg/mL INJ 1 mL 0.5 MG IVP (13:26)
[2020-12-23 17:01] LABS: Glucose Point of Care 137 mg/dL (70-110)
--- NOTE | 2020-12-23 17:03 | PC.NURSE ---
pt has remained in the chair all shift and has walked four times during the day. requesting pain medication with his supper tray.
--- NOTE | 2020-12-23 19:09 | P.PN_ITS ---
Subjective Subjective: Interval history: Bothered by R side abdominal tenderness. Feels bloated. No flatus yet at time of my visit. Sitting up in chair. Walked a small distance to the door. Vitals/I&O/Wt Last Vital Signs Temp 98.0 F 12/23/20 15:40 Pulse 79 12/23/20 15:40 Resp 18 12/23/20 15:40 BP 143/69 12/23/20 15:40 Pulse Ox 92 12/23/20 15:40 12/23/20 12/23/20 12/23/20 06:59 14:59 22:59 Intake Total 200 / 3938.5 480 / 480 1120 / 1600 Output Total 300 / 645 Balance -100 / 3293.5 480 / 480 1120 / 1600 Weight last 48 hrs Weight 84.368 kg Physical Exam Const: COMMON NORMALS: no acute distress, patient oriented x3 and alert GENERAL APPEARANCE: cooperative NUTRITIONAL APPEARANCE: obese ANDREW ENTATION/CONSCIOUSNESS: Yes awake OTHER: Up in chair. HENMT: COMMON NORMALS: oropharynx normal Neck/C-Spine: COMMON NORMALS: no JVD Resp: COMMON NORMALS: normal respiratory effort and clear to auscultation bilaterally AUSCULTATION: clear to auscultation bilaterally Cardio: COMMON NORMALS: no JVD, regular rhythm, S1 normal heart sound present, S2 normal heart sound present and No murmurs present (Cardio) RHYTHM: regular rhythm HEART SOUNDS: S1 normal heart sound present and S2 normal heart sound present GI: COMMON NORMALS: Soft to palpation and non-tender INSPECTION: Yes abdominal distension PALPATION: Yes Soft to palpation OTHER: For trocar wounds on abdomen, no discharge or active bleed Extremity: COMMON NORMALS: no joint enlargement and no pedal edema Neuro: COMMON NORMALS: patient oriented x3 and moves all extremities SENSORIUM/ORIENTATION: Yes alert Skin: COMMON NORMALS: no rashes or lesions noted GENERAL SKIN EXAM: no rashes or lesions noted Data : 12/23/20 04:24 12/23/20 04:24 A&P Assessment and plan (1) Acute appendicitis: Awaiting return of bowel function post-op day 1 status post lap appy for acute retrocecal appendicitis. Encourage incentive spirometry. Symptomatic pain management. Resume Plavix when safe with surgery. Status: Resolved Qualifiers: Acute appendicitis type: with localized peritonitis Appendicitis abscess presence: without abscess Appendicitis gangrene presence: without gangrene Appendicitis perforation presence: without perforation Qualified Code(s): K35.30 - Acute appendicitis with localized peritonitis, without perforation or gangrene Additional A&P Information Diabetes: consistent carbohydrate diet, consistency per surgery. Continue low- dose SSI insulin. History hypertension: Close to goal. Resume amlodipine. Metoprolol. CAD: Resume Plavix when safe with surgery. Resume eyedrops. Attestations Medical Necessity Statement*: Continue admission pending return of bowel function following acute appendicitis and appendectomy. 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
[2020-12-23 21:01] LABS: Glucose Point of Care 191 mg/dL (70-110)
[2020-12-24 00:26] VITALS: BP 148/69; PULSE 87; RESP 18; TEMP 36.9; O2SAT 91
[2020-12-24] MEDS: HYDROcodone-acetaminophen 5-325 mg Tablet 1 TAB PO ×2 (01:31→08:29)
[2020-12-24] MEDS: latanoprost 0.005% Op Soln 2.5 mL Btl 1 DROP EYE-BOTH (01:32)
[2020-12-24 04:20] VITALS: BP 153/78; PULSE 85; RESP 18; TEMP 36.8; O2SAT 91
--- NOTE | 2020-12-24 06:04 | P.PN_ITS ---
Subjective Subjective: Interval history: Patient has been passing gas overnight and feels well. Good urine output. Tolerating well p.o. intake. Otherwise no acute events overnight. Vitals/I&O/Wt Last Vital Signs Temp 98.3 F 12/24/20 04:20 Pulse 85 12/24/20 04:20 Resp 18 12/24/20 04:20 BP 153/78 12/24/20 04:20 Pulse Ox 91 12/24/20 04:20 12/23/20 12/23/20 12/24/20 14:59 22:59 06:59 Intake Total 480 / 480 2120 / 2600 60 / 2660 Output Total 650 / 650 Balance 480 / 480 2120 / 2600 -2009 Physical Exam Narrative: EXAM NARRATIVE: Patient is conscious alert oriented X3 BMI 30 Head and neck examination PERRLA no masses no cervical lymphadenopathy no jaundice Cardiac examination audible S1-S2 no murmurs no gallops no arrhythmias Chest is clear bilateral,abscence of Rhonchi or wheezes,no surgical emphysema Abdomen nontender less distended, positive bowel sounds soft no organomegaly guarding or rigidity/no signs of peritonitis, incisions are clean dry and intact/skin ba in place Data : 12/24/20 06:06 12/23/20 04:24 A&P Assessment and plan (1) Status post appendectomy: Patient is status post laparoscopic appendectomy 12/22/2020 1-encourage ambulation 2-3 times down the [place] and each time at least 200 to 300 feet with assistance. 2-incentive spirometer every hour 3-continue pharmacologic DVT prophylaxis 4-advance to full liquid diet full liquid diet 5-follow on a.m. labs 7-we'll continue coordinating with hospitalist service 8-encourage patient to go slowly on p.o. intake 9-likely if patient continues to do well and tolerates full liquid diet will plan to DC home today Assurance and education All questions have been answered and all concerns have been addressed to patient's satisfaction. Status: Acute Attestations Medical Necessity Statement*: Inpatient hospitalization for medical and surgical care including IV antimicrobial therapy and pain control with appropri ate advancement of diet. Time Spent in Patient Care: (>than 50% of time spent in counselling and/or direct pt care on unit) . 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
[2020-12-24 06:31] LABS: Basophils % 0.2 %; Eosinophils # 0.1 10^3/uL (0.0-0.8); Eosinophils % 0.5 %; Hemoglobin 12.3 g/dL (11.7-16.6); Lymphocytes # 2.7 10^3/uL (0.8-4.8); Lymphocytes % 18.1 %; Mean Corpuscular HGB Conc 31.5 g/dL (30.0-36.0); Mean Corpuscular Hemoglobin 29.5 pg (28.0-34.0); Mean Corpuscular Volume 93.5 fL (80-94); Mean Platelet Volume 10.8 fL (7.4-10.4); Monocytes # 1.3 10^3/uL (0.2-0.9); Monocytes % 8.7 %; Neutrophils # 10.58 10^3/uL (1.8-7.7); Nucleated Red Blood Cells % 0 %; Platelet Count 249 10^3/cmm (130-400); Red Blood Count 4.17 10^6/uL (4.1-5.3); Red Cell Distribution Width 12.9 % (12.1-15.1); White Blood Count 14.7 10^3/uL (4.0-10.0)
[2020-12-24 06:52] LABS: Glucose Point of Care 159 mg/dL (70-110)
[2020-12-24 06:57] LABS: Anion Gap 15.8 (5-19); Blood Urea Nitrogen 11 mg/dL (8-23); Calcium 8.3 mg/dL (8.5-10.5); Carbon Dioxide 22 mmol/L (22-29); Chloride 102 mmol/L (98-107); Glucose 153 mg/dL (65-115); Osmolality Calculated 284 mOsm/kg (285-295); Potassium 3.8 mmol/L (3.5-5.1); Sodium 136 mmol/L (136-145)
[2020-12-24] MEDS: levofloxacin-dextrose 5 % 750 MG/150 ML PREMIX 10 MG IV (07:00)
[2020-12-24 07:34] VITALS: BP 161/77; PULSE 88; RESP 18; TEMP 37.1; O2SAT 91
[2020-12-24] MEDS: metoprolol tartrate 25 mg Tablet PO (08:28)
[2020-12-24] MEDS: heparin 5,000 unit/mL INJ 1 mL 5000 UNIT SUBCUT (08:28)
[2020-12-24] MEDS: amlodipine 5 mg Tablet PO (08:28)
--- NOTE | 2020-12-24 08:54 | PM.PN ---
Subjective Subjective: Interval history: Patient feeling better. Passing flatus. No particular concerns today. Medications: Reviewed: Yes Vitals/I&O/Wt Last Vital Signs Temp 98.8 F 12/24/20 07:34 Pulse 88 12/24/20 07:34 Resp 18 12/24/20 07:34 BP 161/77 12/24/20 07:34 Pulse Ox 91 12/24/20 07:34 12/23/20 12/24/20 12/24/20 22:59 06:59 14:59 Intake Total 2120 / 2600 60 / 2660 100 / 100 Output Total 650 / 650 Balance 0 / 2600 -590 / 2009 100 / 100 Physical Exam Narrative: EXAM NARRATIVE: General exam no apparent distress Cardiovascular regular rate and rhythm without murmur Lungs clear Abdomen is soft with positive bowel sounds Extremities no cyanosis clubbing or edema Data : 12/24/20 06:06 12/24/20 06:06 A&P Assessment and plan (1) Acute appendicitis: Passing flatus. Surgery has mobilize Likely discharge home today Resume Plavix on discharge. Discussed with surgery antibiotic regimen. They are considering adding Flagyl to nesha quinolone on discharge. Status: Resolved Qualifiers: Acute appendicitis type: with localized peritonitis Appendicitis abscess presence: without abscess Appendicitis gangrene presence: without gangrene Appendicitis perforation presence: without perforation Qualified Code(s): K35.30 - Acute appendicitis with localized peritonitis, without perforation or gangrene Additional A&P Information Diabetes mellitus. Sliding scale insulin. Resume home meds when discharged. Hypertension, occasional elevated blood pressure but not unexpected with pain post surgery. Continue home medicines. Coronary artery disease, stable Attestations Medical Necessity Statement*: Okay with medicine for discharge today. Coding Level of Care Code Acute Clin Nurse for [facility] Fwd Diagnoses Acute appendicitis K35.30 Acute appendicitis type: with localized peritonitis Appendicitis abscess presence: without abscess Appendicitis gangrene presence: without gangrene Appendicitis perforation presence: without perforation
[2020-12-24] MEDS: timolol 0.25% Op Soln 5 mL Btl 1 DROP EYEAFF (09:24)
[2020-12-24] MEDS: metroNIDAZOLE IV 500 MG/100 ML PREMIX 100 MG IV (09:26)
--- NOTE | 2020-12-24 09:46 | PC.CHAP ---
Pastoral Care Encounter/Spiritual Assessment Type of Contact [x] Declined tattoo identifier visit [] Patient/Family/Request visit [] Outpatient visit [] Follow-up visit [] Physician referral [] Code/Alert [x] Routine visit [] Staff referral [] Actively dying [] Patient sleeping [] Family support [] [] Out of room [] Palliative care [] [] Receiving care in room [] Pre-surgical visit [] Trauma [] Long length of stay [] ICU visit [] Other: Relational/Emotional Strength [] Patient feels connected with others/family/visitors/staff [] Distress [] Loneliness/isolation [] Abandonment Spirituality of Patient [] Person of [place] [] Attends Zoroastrian of their [place] [] Believes in Prayer [] Reads Bible or Taoism materials [] There are Spiritual issues to be addressed Historical Society Director Interventions [] Prayer [] Active listening [] Non-anxious presence [] Spiritual/emotional support [] Crisis/trauma care [] Spiritual counseling [] Bereavement support [] Provided bereavement packet [] Provided Bible/devotional materials [] Provided toy/stuffed animal, coloring book to patient or family member [] Provided Communion [] Anointing/[place] [] Salvation [] Completed spiritual assessment [] Other: Impact on Illness or Injury [] Angry [] Fearful [] Anxious [] Often cries [] Exhaustion [] Unable to work [] Unable to attend faith [] Unable to walk/stand [] Unable to read [] Unable to drive [] Unable to eat/drink [] Unable to sleep [] Unable to be with family [] Patient intubated [] Other: Summary Time spent with patient
[2020-12-24 10:39] LABS: Glucose Point of Care 186 mg/dL (70-110)
[2020-12-24 11:08] VITALS: BP 138/74; PULSE 65; RESP 17; TEMP 36.8; O2SAT 93
--- NOTE | 2020-12-24 11:15 | PM.DCS ---
Discharge Providers Date of Admission: 12/23/20 17:46 Date of Discharge: December 24, 2020 Attending Provider at Admission: Wicho Chavez MD Attending Provider at Discharge: Wicho Chavez MD Primary Care Provider: Lamin Addison MD Diagnoses at Discharge Discharge Diagnosis (1) Acute appendicitis: Status: Resolved Permanent problem details: Condition resolved and patient overall did well plan to DC home today Qualifiers: Acute appendicitis type: with localized peritonitis Appendicitis abscess presence: without abscess Appendicitis gangrene presence: without gangrene Appendicitis perforation presence: without perforation Qualified Code(s): K35.30 - Acute appendicitis with localized peritonitis, without perforation or gangrene Reason for Visit Reason for Visit: stomach pain Hospital Course Hospital Course This is a pleasant 81 years old gentleman undergone uneventful laparoscopic appendectomy for necrotic and scarred appendicitis. Patient postoperatively did well took some time to pass gas eventually he did and tolerated p.o. intake and continued to have stable vital signs. His hyperglycemia has been monitored being on a sliding scale and hospitalist consultation was initiated at admission for further medical care. Patient maintained to be on antimicrobial therapy because of the nature of his appendicitis and has been having appropriate urine output and pain under control. Patient was kept on pharmacologic DVT prophylaxis as well as mechanical. Physical Exam Narrative: EXAM NARRATIVE: Patient is conscious alert oriented X3 BMI 30 Head and neck examination PERRLA no masses no cervical lymphadenopathy no jaundice Cardiac examination audible S1-S2 no murmurs no gallops no arrhythmias Chest is clear bilateral,abscence of Rhonchi or wheezes,no surgical emphysema Abdomen nontender less distended, positive bowel sounds soft no organomegaly guarding or rigidity/no signs of peritonitis, incisions are clean dry and intact/skin ba in place Discharge Data Data Completed and Pending: Completed Studies During Hospitalization Category Date Time Status CT abdomen pelvis w con* [id number] Urge nt Cat Scan 12/21/20 20:49 Completed Pending at discharge Category Date Time Status ES surgery / GI i mages Routine Exams 12/22/20 09:35 Taken Pathology: Surgic al [PTH] Routine Pth 12/22/20 11:49 Received Labs from last 24 hours 12/24/20 12/24/20 12/24/20 10:36 06:47 06:06 WBC RBC Hgb Hct MCV MCH MCHC RDW Plt Count MPV Neut % (Auto) Lymph % (Auto) [place] % (Auto) Eos % (Auto) Baso % (Auto) Neut # (Auto) Lymph # (Auto) Darke # (Auto) Eos # (Auto) Baso # (Auto) Nucleated RBC % (a uto) Nucleated RBCs # Sodium 136 Potassium 3.8 Chloride 102 Carbon Dioxide 22 Anion Gap 15.8 BUN 11 Creatinine 1.0 GFR Calculation Not Reportable Glucose 153 H POC Glucose 186 H 159 H Calculated Osmolal ity 284 L Calcium 8.3 L 12/24/20 12/23/20 12/23/20 06:06 20:49 16:41 WBC 14.7 H RBC 4.17 Hgb 12.3 Hct 39.0 L MCV 93.5 MCH 29.5 MCHC 31.5 RDW 12.9 Plt Count 249 MPV 10.8 H Neut % (Auto) 72.0 Lymph % (Auto) 18.1 Darke % (Auto) 8.7 Eos % (Auto) 0.5 Baso % (Auto) 0.2 Neut # (Auto) 10.58 H Lymph # (Auto) 2.7 Darke # (Auto) 1.3 H Eos # (Auto) 0.1 Baso # (Auto) 0.0 Nucleated RBC % (a uto) 0 Nucleated RBCs # 0.0 Sodium Potassium Chloride Carbon Dioxide Anion Gap BUN Creatinine GFR Calculation Glucose POC Glucose 191 H 137 H Calculated Osmolal ity Calcium Vitals: Last Vital Signs Temp 98.2 F 12/24/20 11:08 Pulse 65 12/24/20 11:08 Resp 17 12/24/20 11:08 BP 138/74 12/24/20 11:08 Pulse Ox 93 12/24/20 11:08 Discharge Plan Discharge Patient Disposition: Home Condition: Stable Prescriptions: [place] 5-325 mg tablet 1 tab PO Q6H PRN (Reason: pain) Qty: 28 RF: 0 Cipro 500 mg tablet 500 mg PO BID 7 Days Qty: 14 RF: 0 Flagyl 500 mg tablet 500 mg PO Q8H 7 Days Qty: 21 RF: 0 Metamucil Sugar-Free (aspart) 3.4 gram/5.8 gram powder 1.304091 g PO BID PRN (Reason: constipation) Qty: 1040 RF: 0 Continued amlodipine 5 mg tablet 5 mg PO DAILY Qty: 90 RF: 3 celecoxib 200 mg capsule 200 mg PO DAILY Qty: 90 RF: 3 glipizide 2.5 mg tablet extended release 24hr 2.5 mg PO DAILY Qty: 90 RF: 3 losartan 50 mg tablet 50 mg PO DAILY Qty: 90 RF: 3 magnesium 250 mg tablet 500 mg PO DAILY Qty: 90 RF: 3 metoprolol tartrate 25 mg tablet 25 mg PO DAILY Qty: 90 RF: 3 lansoprazole 30 mg capsule,delayed release(DR/EC) 30 mg PO DAILY Qty: 90 RF: 3 timolol 0.25 % drops 1 drp ophthalmic (eye) BID RF: 0 ketoconazole 2 % shampoo 1 applic topical .2 x weekly Qty: 120 RF: 3 oxiconazole 1 % cream 1 applic topical BID Qty: 30 RF: 3 ketoconazole 2 % cream 1 applic topical DAILY Qty: 30 RF: 2 latanoprost 0.005 % Drops 1 drp OPHTHALMIC (EYE) BEDTIME RF: 0 hydrochlorothiazide 25 mg Tablet 25 mg PO DAILY RF: 0 fluticasone propionate 50 mcg/actuation [place],Suspension 1 spray INTRANASAL BID RF: 0 metformin 500 mg tablet extended release 24 hr 1,000 mg PO BID RF: 0 Held clopidogrel 75 mg tablet 75 mg PO DAILY Qty: 90 RF: 3 Hold Instructions: Resume on 12/26/20. Discharge Orders: Discharge Order (Routine); Ordered 12/24/20 Ordered By: Wicho Chavez Referrals: Wicho Chavez MD [Physician] - 01/02/21 2:45 am (Return to surgery office in 1 week) Discharge Diet: Advance as tolerated Discharge Activity: Limit activity as instructed Patient Instructions: Ciprofloxacin (By mouth), Hydrocodone/Acetaminophen (By mouth), Metronidazole (By mouth), Laparoscopic Appendectomy (DC) Activity Restrictions/Additional Instructions: 1. Patient can shower after 48 hours from surgery 2. Remove Dermabond 7 to 10 days after surgery, if there is a secondary dressing can take down after 48 hours. 3. Up and walking as tolerated 4. Do not lift more than 5 pounds first 2 weeks after surgery and not more than 25 pounds 6 to 8 weeks after surgery. 5. Do not operate heavy machinery or drive while using pain medications. 6.Contact the office or return to the ER for worsening nausea vomiting fevers or chills, or noticing any redness around incision sites or discharge. 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
[2020-12-24 12:23] VITALS: BP 138/74; PULSE 65; RESP 17; TEMP 36.8; O2SAT 93
== END 2020-12-24 12:24 | disposition home or self-care (01) | DRG 343 ==
LOC: ER 23:10 → MEDSURG 23:24
PROVIDERS: Internal Medicine; Admitting Provider Surgery; Emergency Provider Family Medicine; PCP Internal Medicine; Visit Provider Surgery
PROC: 0DTJ4ZZ Resection of Appendix, Percutaneous Endoscopic Approach (ICD-10-PCS; CPT 44970; principal; 2020-12-22 09:15)
DX: K35.30 Acute appendicitis with localized peritonitis, without perforation or gangrene (principal); E11.9 Type 2 diabetes mellitus without complications; I10 Essential (primary) hypertension; I25.10 Atherosclerotic heart disease of native coronary artery without angina pectoris; Z95.1 Presence of aortocoronary bypass graft; K57.30 Diverticulosis of large intestine without perforation or abscess without bleeding; M31.6 Other giant cell arteritis; Z86.14 Personal history of Methicillin resistant Staphylococcus aureus infection; E78.5 Hyperlipidemia, unspecified; Z85.828 Personal history of other malignant neoplasm of skin; Z87.891 Personal history of nicotine dependence; Z88.0 Allergy status to penicillin; E66.09 Other obesity due to excess calories; Z68.30 Body mass index [BMI] 30.0-30.9, adult; Z79.84 Long term (current) use of oral hypoglycemic drugs
CPT/HCPCS: 36415; 36416; 74177; 80048; 80053; 81003; 82962; 83690; 84145; 85025; 86140; 88304; 96365; 96367; 96372; 96375; 99285; G0378; J0131; J0330; J1100; J1170; J1644; J1815; J1885; J1956; J2250; J2270; J2405; J2704; J2710; J3010; J3490; J7030; J7040; J7799; Q9967; S0030

== ENCOUNTER → 2021-10-10 11:09 | Outpatient (BNVA) | payer MEDICARE, BC, SELFPAY | PROVIDERS: PCP Internal Medicine; Visit Provider Internal Medicine | DX: E11.9 Type 2 diabetes mellitus without complications (principal); R30.0 Dysuria | CPT/HCPCS: 80053; 83036 ==

== ENCOUNTER → 2022-04-10 11:47 | Outpatient (BNVA) | payer MEDICARE, BC, SELFPAY | PROVIDERS: PCP Internal Medicine; Visit Provider Internal Medicine | DX: E11.9 Type 2 diabetes mellitus without complications (principal); I10 Essential (primary) hypertension; E78.5 Hyperlipidemia, unspecified | CPT/HCPCS: 80053; 83036; 85025 ==

== ENCOUNTER → 2022-09-01 15:03 | Outpatient (BNVA) | payer MEDICARE, BC, SELFPAY | PROVIDERS: PCP Internal Medicine; Visit Provider Podiatrist Foot & Ankle Surgery | DX: L60.1 Onycholysis (principal); E11.9 Type 2 diabetes mellitus without complications; S90.212A Contusion of left great toe with damage to nail, initial encounter; S97.112A Crushing injury of left great toe, initial encounter; W23.0XXA Caught, crushed, jammed, or pinched between moving objects, initial encounter; Z79.4 Long term (current) use of insulin | CPT/HCPCS: 11730; 99204 ==

== ENCOUNTER → 2022-09-19 14:27 | Outpatient (BNVA) | payer MEDICARE, BC, SELFPAY | PROVIDERS: PCP Internal Medicine; Visit Provider Podiatrist Foot & Ankle Surgery | DX: E11.9 Type 2 diabetes mellitus without complications (principal); L60.1 Onycholysis; S90.212A Contusion of left great toe with damage to nail, initial encounter; X58.XXXA Exposure to other specified factors, initial encounter; Z79.84 Long term (current) use of oral hypoglycemic drugs | CPT/HCPCS: 99213 ==

== ENCOUNTER 2023-03-25 09:14 | Outpatient (CLI) | payer MEDICARE, BC, SELFPAY ==
--- NOTE | 2023-03-25 09:26 | MR_ITS ---
WS: [id number] MRI LEFT LOWER EXTREMITY without CONTRAST. COMPARISON: Prior MRI 04/18/2013. Multiplanar, multisequence imaging is performed without contrast. 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 Marker is placed on the palpable abnormality over the proximal lateral fibula. There is mild hypertro phic bone thickening involving the proximal fibula. The signal intensity on all sequences is very sim ilar to the adjacent normal fibula. There is bone expansion extending over length of 3.9 cm with a AP diameter of 3.1 cm. No contrast study was requested. There is thinning of the adjacent cortex. No martinez rrounding edema. No cystic or fluid component. Nonaggressive by MRI features without contrast. Mild degenerative changes noted at the knee joint. Mild osteoarthritis also the tibiotalar joint. The tibia appears intact. The adjacent soft tissues are of normal signal. MR/MR lower leg LT wo con* [id number] IMPRESSION: 1. Bone expansion involving the proximal fibula extends over length of 3.9 cm x 3.1 cm. Cortical thinning with expansion. No adjacent edema. No contrast give n for this examination. No edema within the adjacent muscles. As per history th is is a known bone lesion which is been previously treated with recurrence. 2. The tibia is negative.
== END 2023-03-25 09:15 | disposition home or self-care (01) ==
LOC: RAD 09:18
PROVIDERS: PCP Internal Medicine; Visit Provider Orthopaedic Surgery
DX: D16.22 Benign neoplasm of long bones of left lower limb (principal)
CPT/HCPCS: 73718

== ENCOUNTER → 2023-06-24 15:23 | Outpatient (BNVA) | payer MEDICARE, BC, SELFPAY | PROVIDERS: PCP Internal Medicine; Visit Provider Dermatology | DX: D48.5 Neoplasm of uncertain behavior of skin (principal); L57.0 Actinic keratosis; L82.0 Inflamed seborrheic keratosis; D22.39 Melanocytic nevi of other parts of face; L57.8 Other skin changes due to chronic exposure to nonionizing radiation; L81.4 Other melanin hyperpigmentation | CPT/HCPCS: 11102; 17000; 17003; 17110; 99213 ==

== ENCOUNTER → 2023-07-14 11:03 | Outpatient (BNVA) | payer MEDICARE, BC, SELFPAY | PROVIDERS: PCP Internal Medicine; Visit Provider Dermatology | DX: D04.62 Carcinoma in situ of skin of left upper limb, including shoulder (principal); L57.0 Actinic keratosis | CPT/HCPCS: 17000; 17003; 17262 ==

== ENCOUNTER → 2023-12-02 13:42 | Outpatient (BNVA) | payer MEDICARE, BC, SELFPAY | PROVIDERS: PCP Internal Medicine; Visit Provider Nurse Practitioner Family | DX: L57.0 Actinic keratosis (principal); L57.8 Other skin changes due to chronic exposure to nonionizing radiation; D22.4 Melanocytic nevi of scalp and neck; Z86.007 Personal history of in-situ neoplasm of skin | CPT/HCPCS: 17000; 99213 ==

== ENCOUNTER → 2024-04-04 14:57 | Outpatient (BNVA) | payer MEDICARE, BC, SELFPAY | PROVIDERS: PCP Internal Medicine; Visit Provider Nurse Practitioner Family | DX: L57.0 Actinic keratosis (principal); L21.8 Other seborrheic dermatitis; L98.8 Other specified disorders of the skin and subcutaneous tissue; D48.5 Neoplasm of uncertain behavior of skin; Z86.007 Personal history of in-situ neoplasm of skin | CPT/HCPCS: 17000; 99214 ==

== ENCOUNTER → 2024-06-27 14:01 | Outpatient (BNVA) | payer MEDICARE, BC, SELFPAY | PROVIDERS: PCP Internal Medicine; Visit Provider Nurse Practitioner Family | DX: L57.0 Actinic keratosis (principal); D48.5 Neoplasm of uncertain behavior of skin; L57.8 Other skin changes due to chronic exposure to nonionizing radiation; Z86.007 Personal history of in-situ neoplasm of skin | CPT/HCPCS: 17000; 99213 ==